=== PATIENT | male | born 1955 | race Caucasian/White ===

== ENCOUNTER 2018-09-22 05:43 | Day surgery (SDC) | payer MEDICARE ==
[2018-09-21 15:46] VITALS: BMI 34.8
--- NOTE | 2018-09-21 22:12 | HP ---
HISTORY OF PRESENT ILLNESS: Mr. Calderón is a 63-year-old man known to us for previous lumbar decompr ession and evaluations for lumbar disk disease and back pain. He returns now with increasing neuroge jason claudication symptoms and axial back pain with a new MRI from [facility] that reveals severe central ca nal stenosis at L2-L3. He has had this treated in the past with tramadol therapy, no injections ____ _ around but does not feel a great desire to pursue those. PAST MEDICAL HISTORY: Osteoarthritis, gout, hypertension, GERD, anxiety, degenerative joint disease of the lumbar spine. PAST SURGICAL HISTORY: Lumbar laminectomy x2, unspecified right elbow. CURRENT MEDICATIONS: Lander, , atenolol, amlodipine, alprazolam, ranitidine, aspirin, Flexeril, tramadol, and Naproxen. ALLERGIES: No known drug allergies. PHYSICAL EXAMINATION: The patient is alert and oriented x3. Gait is severely antalgic and stooped. He is using a cane to help with ambulation. ASSESSMENT: Lumbar spinal stenosis. PLAN: Dr. Hernandez met with the patient, reviewed imaging and advocated for L2-3 decompression. He exp lained to the patient the risks, benefits and alternatives of the procedure. The patient expressed u nderstanding and would like to move forward with surgery as discussed. I do believe the patient is m entally competent and capable of making medical decisions for himself. We will move forward with kate fernando as planned.
[2018-09-22] MEDS ORDERED: Fentanyl 100 MCG/2 ML VIAL ONE (06:22)
[2018-09-22] MEDS ORDERED: Bupivacaine HCl 0.5%/Epinephrine 1:200,000/PF 30 ml Vial ONE (06:30)
[2018-09-22] MEDS ORDERED: Thrombin 5000 UNITS/5 ML VIAL ONE ×2 (06:30→10:00)
[2018-09-22] MEDS ORDERED: CEFAZOLIN/Water 2 GM/20 ML SYRINGE ONE ×2 (06:36→11:05)
[2018-09-22] MEDS ORDERED: Tamsulosin HCl 0.4 MG CAP ONE (08:58)
[2018-09-22] MEDS ORDERED: Morphine 4 MG/ML VIAL ONE (10:05)
[2018-09-22] MEDS ORDERED: PHENYLEPHRINE-NS 100 MCG/ML 10 ML SYRINGE ONE (15:04)
[2018-09-22] MEDS ORDERED: Glycopyrrolate 0.2 MG/ML 5 ML SYRINGE ONE (15:04)
[2018-09-22] MEDS ORDERED: PROPOFOL 200 MG/20 ML VIAL ONE (15:04)
[2018-09-22] MEDS ORDERED: Ondansetron PF 4 MG/2 ML Vial ONE (15:04)
[2018-09-22] MEDS ORDERED: ePHEDrine/0.9% NaCl/PF SYRINGE 50 mg/10 ml ONE (15:04)
[2018-09-22] MEDS ORDERED: Dexamethasone 20 MG/5 ML VIAL ONE (15:04)
[2018-09-22] MEDS ORDERED: Lidocaine 1% PF 5 ML VIAL ONE (15:04)
[2018-09-22] MEDS ORDERED: Ketorolac Tromethamine 30 MG/ML VIAL ONE (15:04)
--- NOTE | 2018-09-23 12:19 | OP ---
DATE OF PROCEDURE: 09/22/2018 SURGEON: Lionel Hernandez M.D. ORDER EXPEDITER: Antonio Brian PA-C INDICATION: Pain. DIAGNOSIS: Lumbar stenosis. PROCEDURE: L2-L3 lumbar decompression. ANESTHESIA: General. TECHNIQUE: The patient was brought into the operating room and placed under anesthesia. He was flip ped from a supine to prone position on the operating room table. A linear incision was planned over the L2-3. After prepping and draping and after an appropriate operative pause, the incision was crea janes. The soft tissues were swept away from midline. A self-retaining retractor was placed in the wo und for optimal exposure. After confirming the appropriate level with C-arm fluoroscopy, an [email or web address] ro ngeur as well as a high-speed cutting drill bit and 2 and 3 and 4 mm Kerrison was used to perform a l aminectomy along the L2-3 segment. After complete decompression of this region, the wound was irriga janes. Hemostasis was maintained throughout. The wound was then closed in anatomic layers and a press ure dressing was applied. There were no known procedural complications.
== END 2018-09-22 11:30 | disposition home or self-care (01) ==
LOC: SDC 05:43
PROVIDERS: ATTEND Neurological Surgery
PROC: 01NB0ZZ Release Lumbar Nerve, Open Approach (ICD-10-PCS; principal; 2018-09-22)
DX: M48.061 Spinal stenosis, lumbar region without neurogenic claudication (principal); G45.0 Vertebro-basilar artery syndrome; Z79.899 Other long term (current) drug therapy
CPT/HCPCS: 76001; 93005; 93010; 96374; J0131; J0670; J1100; J1885; J2001; J2270; J2405; J2704; J3010

== ENCOUNTER 2018-11-18 09:08 | Outpatient (CLI) | payer MEDICARE ==
--- NOTE | 2018-11-18 11:04 | RAD ---
LUMBAR SPINE FOUR VIEWS: History: 63-year-old male with history of spondylosis of the lumbar region . Comparison: 03-04-17 FINDINGS: Laminectomy changes at L5 and L2-3. There is some retrolisthesis of L1 on L2 without evidence for tra nslation between flexion and extension, stable from prior exam. Generalized disc osteophytosis and fa cet arthrosis. IMPRESSION: Multilevel laminectomy. Spondylosis with some retrolisthesis of L1 on L2. No acute process. POS: [facility]
== END 2018-11-18 09:09 | disposition home or self-care (01) ==
LOC: RAD 09:08
PROVIDERS: ATTEND Specialist
DX: M47.816 Spondylosis without myelopathy or radiculopathy, lumbar region (principal); M43.16 Spondylolisthesis, lumbar region; Z98.890 Other specified postprocedural states
CPT/HCPCS: 72120

== ENCOUNTER 2019-01-19 15:31 | Outpatient (CLI) | payer MEDICARE ==
--- NOTE | 2019-01-19 16:52 | RAD ---
LUMBAR SPINE THREE VIEWS: HISTORY: Spondylosis of the spine. COMPARISON: None. FINDINGS: There appear to be five lumbar type vertebral bodies. In the neutral position, 4.5 mm of retrolisthe sis of L1 upon L2. Upon flexion, 3.7 mm of retrolisthesis of L1 upon L2. Upon extension, 4.8 mm of retrolisthesis of L1 upon L2. Upon extension, 4.8 mm of retrolisthesis of L1 upon L2. Additional le vels of spondylosis are not noted. IMPRESSION: Grade 1 retrolisthesis L1 upon L2. POS: [facility]
== END 2019-01-19 15:32 | disposition home or self-care (01) ==
LOC: RAD 15:31
PROVIDERS: ATTEND Nurse Practitioner Family
DX: M47.816 Spondylosis without myelopathy or radiculopathy, lumbar region (principal); M43.16 Spondylolisthesis, lumbar region
CPT/HCPCS: 72110

== ENCOUNTER 2019-02-08 10:08 | Outpatient (CLI) | payer MEDICARE ==
[~2019-02-08 10:08] MED LIST: Gadobenate Dimeglumine 529 MG/1 ML (20ML VIAL) ONE
[2019-02-08 10:51] LABS: Estimated GFR-MDRD - POC Greater than 90
--- NOTE | 2019-02-08 13:41 | MRI ---
MRI LUMBAR SPINE WITH AND WITHOUT CONTRAST: INDICATIONS: Back pain. History of lumbar surgery in 2015 and 2018. COMPARISON: MRI lumbar spine from 08/05/2018. TECHNIQUE: Multiplanar, multisequence imaging of the lumbar spine obtained. FINDINGS: New postoperative changes are now noted at the L2-L3 level, when compared to the prior study. [employer] ior laminectomy change is noted at this site with prominent enhancement in the postoperative bed. The lumbar vertebrae maintain height. Degenerative changes are again noted with anterior osteophytes prominent in the lower thoracic and upper lumbar vertebrae. Slight wedging of L1 is stable. Inferi or endplate defect at L2 is again noted. Degenerative disk changes throughout with loss of disk spac e at L3-L4, L4-L5, and L5-S1 appear stable. Slight anterolisthesis of L4-L5 again noted. At L1-L2, minimal posterior listhesis. Mild disk bulge. Facet hypertrophy without significant centr al canal or foraminal stenosis. At L2-L3, new posterior laminectomy changes. Slight anterolisthesis. Mild bilateral foraminal narro wing due to uncinate hypertrophy and diffuse disk bulge. Prominent facet hypertrophy. Mild central canal stenosis due to the facet hypertrophy. Mild bilateral foraminal narrowing. Postoperative jasso ges, as noted above, with prominent enhancement in the posterior soft tissues. At L3-L4, mild disk bulge. Facet hypertrophy. Mild to moderate central canal stenosis, similar to t he prior exam. At L4-L5, minimal anterolisthesis. Broad-based disk bulge. Facet hypertrophy. Mild to moderate pradeep tral canal stenosis. Right foraminal stenosis secondary to disk bulge and facet hypertrophy, unchang ed from prior exam. At L5-S1, posterior laminectomy changes again noted. No significant central canal stenosis. Left fo raminal encroachment secondary to disk osteophyte complex, unchanged from prior exam. IMPRESSION: New postoperative changes are now seen at L2-L3. Prominent enhancement in the posterior soft tissues of the operative bed. No evidence of abscess or fluid collection. Findings at each level are descr ibed above. POS: [facility]
== END 2019-02-08 10:09 | disposition home or self-care (01) ==
LOC: SCSMRI 10:08
PROVIDERS: ATTEND Nurse Practitioner Family
DX: M43.16 Spondylolisthesis, lumbar region (principal); M48.061 Spinal stenosis, lumbar region without neurogenic claudication; M51.9 Unspecified thoracic, thoracolumbar and lumbosacral intervertebral disc disorder; M51.37 Other intervertebral disc degeneration, lumbosacral region; M51.36 Other intervertebral disc degeneration, lumbar region; M25.78 Osteophyte, vertebrae; Z98.890 Other specified postprocedural states
CPT/HCPCS: 72158; 82565; A9577

== ENCOUNTER 2019-03-07 10:24 | Outpatient (CLI) | payer MEDICARE ==
--- NOTE | 2019-03-07 11:01 | CT ---
FCT Lumbar Spine WO Con History: [Back pain. Numbness.] Comparison: MRI February 08, 2019 Findings: The aortic contour is nonaneurysmal. No retroperitoneal adenopathy. No hydronephrosis. Laminectomy changes at L5 and L2. No acute fracture, malalignment, or subluxation. Level by level analysis was done on the February 08, 2019 MRI examination which has greater sensitivity. Postoperative changes are similar in the midline soft tissues. No evidence for a large drainable flu id collection. Paraspinal musculature is normal. Impression: 1. No acute fracture or malalignment. No new listhesis. 2. Level by level evaluation was performed at the MRI February 08, 2019. No new or worsening neural fora wendi or spinal canal narrowing. 3. No drainable postoperative fluid collection.
== END 2019-03-07 10:25 | disposition home or self-care (01) ==
LOC: TBSIIMAG 10:24
PROVIDERS: ATTEND Neurological Surgery
DX: M54.16 Radiculopathy, lumbar region (principal); Z98.890 Other specified postprocedural states
CPT/HCPCS: 72131